=== PATIENT | female | born 1940 | race Caucasian/White ===

== ENCOUNTER → 2019-03-24 | Outpatient (CLI) | payer MEDICARE ==
--- NOTE | 2019-03-24 10:55 | Diagnostic Imaging Report ---
Right clavicle, 2 views. History: Pain, asymmetry. Findings: The soft tissues are normal. Bone mineralization is normal. There is no evidence of fracture or dislocation. There are no lytic or sclerotic lesions. There is moderate AC joint hypertrophy. IMPRESSION: Right AC joint DJD. No acute osseous abnormality. Signed by: Og Kirkpatrick on 03/24/2019 10:52 AM
== END ==
LOC: RAD 09:39
PROVIDERS: ATTEND Family Medicine
DX: M13.0 Polyarthritis, unspecified (principal)